=== PATIENT | female | born 1945 | race Caucasian/White ===

== ENCOUNTER 2016-07-03 10:26 | Emergency (ER) | payer OTHER ==
[2016-07-03 10:38] VITALS: RESP 18; TEMP 98; O2SAT 95
--- NOTE | 2016-07-03 11:03 | UCPHY ---
H & P Patient Type: New Chief Complaint Nursing Narrative: moved here 2 months ago - new Pt if internal med. Stratched with finger nails Rt lower 4wks ago - inc. pain swelling over last few days Time Seen by Provider: 07/03/16 10:44 HPI/ROS: 70-year-old female here for infection on her right lower leg she states that began after she scratched her leg several weeks ago and has gradually gotten worse over the last few weeks. She denies fevers or chills. She is accompanied by her spouse. She is also out of her triamterene/hydrochlorothiazide. Review of systems As per HPI General no fever no chills no weakness HEENT no eye pain no eye discharge. No eye redness, no sore throat Respiratory no cough, no shortness of breath Cardiac no chest pain, no peripheral edema GI no abdominal pain, no diarrhea, no constipation, no nausea, no vomiting no flank pain, no hematuria, no dysuria Musculoskeletal no myalgias, no joint pain Heme no easy bruising, no easy bleeding Endo no polyuria, no polydipsia Skin positive rashes, no pruritus Neuro no syncope, no dizziness, no headaches Psych is no suicidal ideation, no homicidal ideation Source: Patient, Family Exam Limitations: Other - Personal History Current Tetanus Diphtheria and Acellular Pertussis (TDAP): Yes - Medical/Surgical History Hx Diabetes: Yes Hx Cardiac Disease: Yes Other PMH: HTN - Family History Significant Family History: No pertinent family hx - Social History Smoking Status: Former smoker Alcohol Use: None Drug Use: None - Physical Exam Exam: 70-year-old female alert and oriented no acute distress nontoxic appearance afebrile Atraumatic normocephalic OP no erythema no exudate Neck is supple Lungs clear to auscultation bilaterally Heart regular rate and rhythm Abdomen nondistended bowel sounds present soft Extremities Right lower extremity right lateral calf, ulceration approximately 2 x 2 cm with purulent drainage with circumferential erythema No lymphangitic streaks Constitutional: Initial Vital Signs Temperature (C) 36.6 C 07/03/16 10:32 Heart Rate 91 07/03/16 10:32 Respiratory Rate 18 07/03/16 10:32 Blood Pressure 180/95 H 07/03/16 10:32 O2 Sat (%) 95 07/03/16 10:32 O2 Delivery Mode Room Air Allergies/Adverse Reactions: metronidazole [From Flagyl] Allergy (Verified 07/03/16 10:31) Penicillins Allergy (Verified 07/03/16 10:31) Home Medications: Medication Instructions Recorded Clindamycin HCl [Clindamycin] 300 mg PO TID #30 cap 07/03/16 Hydrochlorothiazide 07/03/16 Januvia 100 MG (*) 07/03/16 Phendimetrazine Tartrate 07/03/16 Plavix 07/03/16 Triamterene/Hydrochlorothiazid 1 each PO DAILY #30 capsule 07/03/16 [Triamterene-Hctz 37.5-25 mg Cp] Medical Decision Making ED Course/Re-evaluation: Patient seen and evaluated for right lower leg infection Patient with history of diabetes IV established, lab sent White blood cell count within normal limits Sed rate elevated Wound culture sent Blood cultures sent Patient given 1st dose of IV clindamycin 600 mg IV piggyback Impression Diabetic ulcer with local cellulitis Plan Clindamycin 300 three times daily times 10 days Follow-up with your primary care physician and/or with the wound clinic as soon as possible If your wound is worsening or redness expanding under leg please go your closest emergency room as she will likely need to be admitted to the hospital for IV antibiotics - Data Points Laboratory Results: Laboratory Results 07/03/16 11:20 07/03/16 11:00 07/03/16 07/03/16 07/03/16 11:20 11:00 11:00 WBC 7.33 10^3/uL 10^3/uL (3.80-9.50) RBC 4.98 10^6/uL 10^6/uL (4.18-5.33) Hgb 13.8 g/dL g/dL (12.6-16.3) Hct 41.4 % % 41.5 % % (38.0-47.0) (38.0-47.0) MCV 83.3 fL fL (81.5-99.8) MCH 27.7 pg L pg (27.9-34.1) MCHC 33.3 g/dL g/dL (32.4-36.7) RDW 13.2 % % (11.5-15.2) Plt Count 320 10^3/uL 10^3/uL (150-400) MPV 11.0 fL fL (8.7-11.7) Neut % (Auto) 68.4 % % (39.3-74.2) Lymph % (Auto) 20.2 % % (15.0-45.0) [place] % (Auto) 7.2 % % (4.5-13.0) Eos % (Auto) 2.5 % % (0.6-7.6) Baso % (Auto) 0.7 % % (0.3-1.7) Nucleat RBC Rel Count 0.0 % % (0.0-0.2) Absolute Neuts (auto) 5.02 10^3/uL 10^3/uL (1.70-6.50) Absolute Lymphs (auto) 1.48 10^3/uL 10^3/uL (1.00-3.00) Absolute Monos (auto) 0.53 10^3/uL 10^3/uL (0.30-0.80) Absolute Eos (auto) 0.18 10^3/uL 10^3/uL (0.03-0.40) Absolute Basos (auto) 0.05 10^3/uL 10^3/uL (0.02-0.10) Absolute Nucleated RBC 0.00 10^3/uL 10^3/uL (0-0.01) Immature Gran % 1.0 % % (0.0-1.1) Immature Gran # 0.07 10^3/uL 10^3/uL (0.00-0.10) ESR 37 MM/HR H MM/HR (0-30) VBG Lactic Acid Sodium 137 mEq/L mEq/L (134-144) Potassium 4.3 mEq/L mEq/L (3.5-5.2) Chloride 94 mEq/L L mEq/L (97-110) Carbon Dioxide 27 mEq/l mEq/l (22-31) Anion Gap 16 mEq/L mEq/L (8-16) BUN 39 mg/dL H mg/dL (7-23) Creatinine 2.6 mg/dL H mg/dL (0.6-1.0) Estimated GFR 18 Glucose 350 mg/dL H mg/dL (70-100) Calcium 8.5 mg/dL mg/dL (8.5-10.4) Total Bilirubin 0.5 mg/dL mg/dL (0.1-1.4) AST 34 IU/L IU/L (14-46) ALT 45 IU/L IU/L (9-52) Alkaline Phosphatase 128 IU/L H IU/L (38-126) Total Protein 7.8 g/dL g/dL (6.3-8.2) Albumin 3.9 g/dL g/dL (3.5-5.0) 07/03/16 11:00 WBC RBC Hgb Hct MCV MCH MCHC RDW Plt Count MPV Neut % (Auto) Lymph % (Auto) [place] % (Auto) Eos % (Auto) Baso % (Auto) Nucleat RBC Rel Count Absolute Neuts (auto) Absolute Lymphs (auto) Absolute Monos (auto) Absolute Eos (auto) Absolute Basos (auto) Absolute Nucleated RBC Immature Gran % Immature Gran # ESR VBG Lactic Acid 1.7 mmol/L mmol/L (0.7-2.1) Sodium Potassium Chloride Carbon Dioxide Anion Gap BUN Creatinine Estimated GFR Glucose Calcium Total Bilirubin AST ALT Alkaline Phosphatase Total Protein Albumin Medications Given: Discontinued Medications Clindamycin Phosphate/Dextrose (Cleocin 600 Mg (Premix)) 50 mls @ 100 mls/hr IV ONCE ONE PRN Reason: Protocol Stop: 07/03/16 12:36 Last Admin: 07/03/16 12:19 Dose: 50 mls Sodium Chloride (Ns) 1,000 mls @ 0 mls/hr IV ONCE ONE PRN Reason: Wide Open Stop: 07/03/16 13:01 Last Admin: 07/03/16 13:01 Dose: 1,000 mls Departure - Departure Disposition: Home, Routine, Self-Care Clinical Impression: Diabetic ulcer of lower leg Condition: Good Instructions: Cellulitis (ED), Diabetic Foot Ulcers (ED) Referrals: Alessia Morrison MD [Primary Care Provider] - As per Instructions Prescriptions: Clindamycin HCl [Clindamycin] 300 mg PO TID #30 cap Triamterene/Hydrochlorothiazid [Triamterene-Hctz 37.5-25 mg Cp] 1 each PO DAILY #30 capsule - PQRS PQRS Measurement: na
[2016-07-03 11:33] LABS: ABSOLUTE IMMATURE GRANULOCYTES 0.07 10^3/uL (0.00-0.10); ADD DIFF? NO; ADD MORPH? NO; ADD SCAN? NO; ATYPICAL LYMPHOCYTE FLAG 0 (0-99); FRAGMENT RBC FLAG 0 (0-99); HEMATOCRIT 41.5 % (38.0-47.0); HEMOGLOBIN 13.8 g/dL (12.6-16.3); LEFT SHIFT FLG 0 (0-99); LIPEMIA HEMOLYSIS FLAG 80 (0-99); MEAN CELL HEMOGLOBIN 27.7 pg (27.9-34.1); MEAN CELL HEMOGLOBIN CONCENTR. 33.3 g/dL (32.4-36.7); MEAN CELL VOLUME 83.3 fL (81.5-99.8); PLATELET CLUMPS FLAG 10 (0-99); PLATELET COUNT 320 10^3/uL (150-400); RED BLOOD CELL COUNT 4.98 10^6/uL (4.18-5.33); RED CELL DISTRIBUTION WIDTH 13.2 % (11.5-15.2)
[2016-07-03 11:46] LABS: ALBUMIN 3.9 g/dL (3.5-5.0); BILIRUBIN,TOTAL 0.5 mg/dL (0.1-1.4); CALCIUM 8.5 mg/dL (8.5-10.4); CREATININE 2.6 mg/dL (0.6-1.0); POTASSIUM 4.3 mEq/L (3.5-5.2); TOTAL PROTEIN 7.8 g/dL (6.3-8.2)
[2016-07-03 12:03] LABS: HEMATOCRIT 41.4 % (38.0-47.0)
[2016-07-03] MEDS ORDERED: CLINDAMYCIN 600 MG/DEXTROSE 50 ML IV ONE (12:07)
[2016-07-03] MEDS ORDERED: NS 1,000 ML IV ONE (13:00)
[2016-07-03 13:41] VITALS: BP 145/78; PULSE 79
== END 2016-07-03 13:33 | disposition home or self-care (01) ==
LOC: CED 10:26
DX: E11.622 Type 2 diabetes mellitus with other skin ulcer (principal); L03.115 Cellulitis of right lower limb
CPT/HCPCS: 73590; 96361; 96365; G0463; 80053-PO; 83605-PO; 85025-PO; 85652-PO; 99205-PO